=== PATIENT | female | born 1965 | race Caucasian/White ===

== ENCOUNTER 2021-08-12 08:46 | Outpatient (CLI) | payer OTHER | END 2021-08-12 13:12 | disposition home or self-care (01) | LOC: SONOGRAMA 08:46 | DX: N84.0 Polyp of corpus uteri (principal) ==

== ENCOUNTER 2025-03-07 06:11 | Outpatient (CLI) | payer OTHER ==
[2025-03-07 08:12] LABS: COL EPI 126 SECONDS (82-175)
== END 2025-03-07 06:13 | disposition home or self-care (01) ==
LOC: LAB 06:11
DX: D68.9 Coagulation defect, unspecified (principal)